=== PATIENT | female | born 1990 | race African-American/Black ===

== ENCOUNTER 2022-03-15 06:35 | Inpatient (IN) ==
[2022-03-15] MEDS ORDERED: ONDANSETRON 4 MG/2 ML VIAL IV PRN (07:09)
[2022-03-15] MEDS ORDERED: TRANEXAMIC ACID 1,000 MG in SODIUM CHLORIDE 0.9% 100 ML IV PRN (07:09)
[2022-03-15] MEDS ORDERED: CARBOPROST TROMETHAMINE 250 MCG/ML AMP IM PRN (07:09)
[2022-03-15] MEDS ORDERED: OXYTOCIN/LR 20 UNIT/1,000 ML BAG IV ONE ×2 (07:09→18:40)
[2022-03-15] MEDS ORDERED: miSOPROStoL 200 MCG TABLET RECTAL PRN (07:09)
[2022-03-15] MEDS ORDERED: METHYLERGONOVINE 0.2 MG/1 ML AMP IM PRN (07:09)
[2022-03-15] MEDS: LACTATED RINGERS 1,000 ML IV SCH ×3 (07:25→14:25)
[2022-03-15 07:41] LABS: Basophils % 0.3 % (0.0-0.8); Eosinophils % 0.4 % (0.00-10.9); Hematocrit 35.1 VOL% (35.7-47.0); Hemoglobin 11.6 GM/DL (12.0-16.0); Immature Granulocytes % 0.6 %; Immature Granulocytes Absolute 0.07 #; Lymphocytes # 1.5 10*3/uL (1.4-4.0); Lymphocytes % 13.6 % (21.3-54.2); Mean Platelet Volume 11.4 FL (9.6-12.0); Monocytes % 8.8 % (1.7-12.7); Neutrophils % 76.3 % (38.7-73.9); Platelet Count 167 T/CUMM (130-400); Red Blood Count 4.39 MC/CUMM (3.8-5.5); Red Cell Distribution Width 14.6 % (9.3-17.3); White Blood Count 10.8 T/CUMM (4-12)
[2022-03-15 08:03] LABS: Albumin 2.3 G/DL (3.4-5.0); Bilirubin,Total 0.5 MG/DL (0.20-1.00); Calcium 8.6 MG/DL (8.5-10.1); Potassium 3.9 MMOL/L (3.5-5.1); Total Protein 7.3 G/DL (6.4-8.2)
[2022-03-15] MEDS: CLINDAMYCIN INJ 900 MG/50 ML PREMIX IV SCH ×2 (08:11→16:16)
[2022-03-15 08:29] LABS: Hepatitis B Surface Ag Quant < 0.10 Index; Hepatitis B Surface Ag Result Non-Reactive (NonReactive)
[2022-03-15 08:42] LABS: HIV Antigen/Antibody Result Nonreactive (Nonreactive)
[2022-03-15] MEDS ORDERED: PROMETHAZINE 25 MG/1 ML VIAL IM ONE (10:40)
[2022-03-15] MEDS ORDERED: diphenhydrAMINE 50 MG/1 ML VIAL IV PRN ×2 (10:40)
[2022-03-15] MEDS ORDERED: FAMOTIDINE 20 MG/2 ML VIAL IV ONE (10:40)
[2022-03-15] MEDS ORDERED: NALOXONE 0.4 MG/ML VIAL IV PRN (10:40)
[2022-03-15] MEDS ORDERED: hydrOXYzine HCL 25 MG/1 ML VIAL IM PRN (10:40)
[2022-03-15] MEDS ORDERED: ePHEDrine 50 MG/ML VIAL IV PRN (10:40)
[2022-03-15] MEDS ORDERED: CITRIC ACID/SODIUM CITRATE 30 ML UDCUP PO ONE (10:40)
[2022-03-15] MEDS ORDERED: fentaNYL 2 MCG/ROPIV 0.2% EPID 100 ML EPIDURAL SCH (11:00)
[2022-03-15] MEDS ORDERED: OXYTOCIN/LR 20 UNIT/1,000 ML BAG IV SCH (13:30)
[2022-03-15 13:55] LABS: Bilirubin,Urine Negative (Negative); Blood, Urine Trace mg/dL (Negative); Glucose,Urine (UA) Negative (Negative); Ketones,Urine 15 mg/dL (Negative); Nitrite,Urine Negative (Negative); Protein,Urine 30 mg/dL (Negative); Urine Appearance Clear (Clear); Urine Color Yellow (Yellow); Urine Specific Gravity 1.025 (1.001-1.035); Urine Urobilinogen < 2.0 eU/dL (<2.0)
[2022-03-15 13:58] LABS: Bacteria,Urine Occasional /HPF (Few); Mucus,Urine Occasional /LPF (Occasional); RBC,Urine 4 /HPF (0-4)
[2022-03-15 14:06] LABS: Barbiturates Screen,Urine Negative (Negative); Benzodiazepines Screen,Urine Negative (Negative); Cannabinoid Screen,Urine Negative (Negative); Opiate Screen,Urine Negative (Negative); Phencyclidine Screen,Urine Negative (Negative)
[2022-03-15] MEDS ORDERED: miSOPROStoL 200 MCG TABLET ONE (16:24)
[2022-03-15] MEDS ORDERED: TRANEXAMIC ACID 1,000 MG/10 ML VIAL ONE (16:24)
[2022-03-15] MEDS ORDERED: SODIUM CHLORIDE 0.9% 0 ML IV ONE (16:24)
[2022-03-15] MEDS ORDERED: CARBOPROST TROMETHAMINE 250 MCG/ML AMP IM ONE (16:25)
[2022-03-15] MEDS ORDERED: METHYLERGONOVINE 0.2 MG/1 ML AMP ONE (16:25)
[2022-03-15] MEDS ORDERED: OXYTOCIN 10 UNIT/ML VIAL ONE (18:34)
[2022-03-15] MEDS ORDERED: LANOLIN 50% CREAM 0.3 OZ TUBE TOP PRN (18:40)
[2022-03-15] MEDS ORDERED: MEASLES/MUMPS/RUBELLA VACCINE 0.5 ML VIAL SUBCUT ONE (18:40)
[2022-03-15] MEDS ORDERED: RHO(D) IMMUNE GLOBULIN 300 MCG SYRINGE IM ONE (18:40)
[2022-03-15] MEDS ORDERED: DIPH/TET/ACEL PERT BOOSTER VACCINE 0.5 ML VIAL IM ONE (18:40)
[2022-03-15] MEDS ORDERED: HYDROCORTISONE 2.5% RECTAL CREAM 30 GM TUBE TOP PRN (18:40)
[2022-03-15] MEDS ORDERED: WITCH HAZEL PADS 100/JAR TOP PRN (18:40)
[2022-03-15] MEDS ORDERED: BENZOCAINE 20%/MENTHOL 0.5% SPRAY 56 GM CAN TOP PRN (18:40)
[2022-03-15] MEDS ORDERED: BISACODYL 10 MG SUPP RECTAL PRN (18:40)
[2022-03-15] MEDS ORDERED: ACETAMINOPHEN 325 MG TABLET PO PRN (18:40)
[2022-03-15 18:55] LABS: Cord Venous Blood HCO3 22.6 MMOL/L; Cord Venous Blood PCO2 45.9 MMHG
[2022-03-15] MEDS ORDERED: OXYTOCIN 10 UNIT/ML VIAL IM ONE (18:59)
[2022-03-15] MEDS: oxyCODONE/ACETAMINOPHEN 5-325 MG TABLET PO PRN (21:10)
[2022-03-15] MEDS: DOCUSATE SODIUM 100 MG CAPSULE PO SCH (21:41)
[2022-03-15] MEDS: IBUPROFEN 800 MG TABLET PO PRN (22:41)
[2022-03-16] MEDS: AMOXICILLIN/CLAV 875 MG TABLET PO SCH ×2 (00:36→08:46)
[2022-03-16] MEDS: oxyCODONE/ACETAMINOPHEN 5-325 MG TABLET PO PRN ×4 (02:34→21:16)
[2022-03-16] MEDS: IBUPROFEN 800 MG TABLET PO PRN ×2 (05:27→15:57)
[2022-03-16 06:36] LABS: Basophils % 0.2 % (0.0-0.8); Eosinophils % 0.2 % (0.00-10.9); Hematocrit 31.9 VOL% (35.7-47.0); Hemoglobin 10.4 GM/DL (12.0-16.0); Immature Granulocytes Absolute 0.14 #; Lymphocytes # 1.5 10*3/uL (1.4-4.0); Lymphocytes % 10.3 % (21.3-54.2); Mean Corpuscular HGB Conc 32.6 GM/DL (32-36); Mean Corpuscular Volume 80.8 FL (87-102); Mean Platelet Volume 11.2 FL (9.6-12.0); Monocytes # 1.3 10*3/uL (0.11-0.8); Monocytes % 9.3 % (1.7-12.7); Platelet Count 153 T/CUMM (130-400); Red Blood Count 3.95 MC/CUMM (3.8-5.5); Red Cell Distribution Width 14.7 % (9.3-17.3); White Blood Count 14.4 T/CUMM (4-12)
[2022-03-16 07:55] LABS: Rubella Antibody IgG Result Reactive (NonReactive)
[2022-03-16] MEDS: DOCUSATE SODIUM 100 MG CAPSULE PO SCH ×2 (08:47→20:50)
[2022-03-17] MEDS: AMOXICILLIN/CLAV 875 MG TABLET PO SCH ×2 (02:25→09:49)
[2022-03-17] MEDS: IBUPROFEN 800 MG TABLET PO PRN ×2 (03:59→09:47)
[2022-03-17] MEDS: oxyCODONE/ACETAMINOPHEN 5-325 MG TABLET PO PRN ×2 (04:00→09:47)
[2022-03-17 08:29] VITALS: BP 109/55
[2022-03-17] MEDS: DOCUSATE SODIUM 100 MG CAPSULE PO SCH (09:47)
== END 2022-03-17 12:00 | disposition home or self-care (01) | DRG 807 ==
LOC: N.LD 06:35 → N.OB 21:20
PROVIDERS: ADMIT Obstetrics & Gynecology; ATTEND Obstetrics & Gynecology